=== PATIENT | male | born 1980 | race Caucasian/White ===

== ENCOUNTER 2017-03-18 16:39 | Emergency (ER) | payer OTHER ==
[2017-03-18 18:04] LABS: BASOPHILS 0.1 % (0-2); EOSINOPHILS 0 % (0-7); HEMATOCRIT 37.1 % (42.0-54.0); HEMOGLOBIN 13.1 g/dL (13.5-17.5); IMMATURE GRANULOCYTES 0.7 % (0-5); MCH 31.6 pg (26.0-34.0); MCHC 35.3 g/dL (31.0-37.0); MCV 89.4 fL (80.0-100.0); MEAN PLATELET VOLUME 12.1 fL (7.4-10.4); MONOCYTES 5.4 % (2-11); NEUTROPHILS 83.8 % (40-80); PLATELET COUNT 191 10x3/uL (130-400); RBC 4.15 10x6/uL (4.20-6.10); RDW 12.2 % (11.5-14.5); WBC 14.4 10x3/uL (4.8-10.8)
[2017-03-18 18:26] LABS: ALKALINE PHOSPHATASE 81 U/L (46-116); ALT (SGPT) 24 U/L (10-68); BILIRUBIN - TOTAL 0.31 mg/dL (0.2-1.3); CALC OSMOLALITY 265 mosm/kg (275-300); CALCIUM 8.1 mg/dL (8.5-10.1); CARBON DIOXIDE 22.5 mmol/L (21.0-32.0); CHLORIDE - SERUM 98 mmol/L (98-107); CREATININE - SERUM 1.1 mg/dL (0.6-1.3); GLUCOSE 108 mg/dL (74-106); POTASSIUM - SERUM 3.5 mmol/L (3.5-5.1); PROTEIN - SERUM 7.3 g/dL (6.4-8.2); SODIUM 133 mmol/L (136-145); UREA NITROGEN 10 mg/dL (7-18); eGFR NON AFRICAN AMERICAN 80 mL/min (90-120)
[2017-03-18 20:46] LABS: APPEARANCE CLEAR (CLEAR); BILIRUBIN NEGATIVE (NEGATIVE); COLOR DK YELLOW (YELLOW); GLUCOSE NEGATIVE (NEGATIVE); KETONE NEGATIVE (NEGATIVE); LEUKOCYTE ESTERASE NEGATIVE (NEGATIVE); NITRITE NEGATIVE (NEGATIVE); PROTEIN NEGATIVE (NEGATIVE); SPECIFIC GRAVITY 1.015 (1.005-1.020); UROBILINOGEN NORMAL (NORMAL)
[2017-03-18 20:51] LABS: UDS - AMPHET NEGATIVE QUAL (NEGATIVE); UDS - BARB NEGATIVE QUAL (NEGATIVE); UDS - BENZO NEGATIVE QUAL (NEGATIVE); UDS - COCAINE NEGATIVE QUAL (NEGATIVE); UDS - METH NEGATIVE QUAL (NEGATIVE); UDS - OPIATE NEGATIVE QUAL (NEGATIVE); UDS - PCP NEGATIVE QUAL (NEGATIVE); UDS - THC NEGATIVE QUAL (NEGATIVE)
== END 2017-03-19 07:00 | disposition home or self-care (01) ==
LOC: D.ER 16:39
PROVIDERS: Family Medicine
DX: F10.129 Alcohol abuse with intoxication, unspecified (principal); F10.10 Alcohol abuse, uncomplicated; F22 Delusional disorders; F41.9 Anxiety disorder, unspecified; F17.200 Nicotine dependence, unspecified, uncomplicated

== ENCOUNTER 2017-07-30 08:36 | Emergency (ER) | payer OTHER | END 2017-07-30 09:56 | disposition home or self-care (01) | LOC: D.ER 08:36 | DX: L30.9 Dermatitis, unspecified (principal); F17.200 Nicotine dependence, unspecified, uncomplicated ==

== ENCOUNTER 2017-08-04 09:15 | Emergency (ER) | payer OTHER | END 2017-08-04 10:55 | disposition home or self-care (01) | LOC: D.ER 09:15 | DX: Z76.0 Encounter for issue of repeat prescription (principal); R44.0 Auditory hallucinations; F17.200 Nicotine dependence, unspecified, uncomplicated; Z86.59 Personal history of other mental and behavioral disorders ==

== ENCOUNTER 2017-08-16 01:11 | Emergency (ER) | payer OTHER | END 2017-08-16 01:45 | disposition home or self-care (01) | LOC: D.ER 01:11 | DX: Z03.89 Encounter for observation for other suspected diseases and conditions ruled out (principal); F17.200 Nicotine dependence, unspecified, uncomplicated ==